=== PATIENT | male | born 1935 | race Hispanic/Latino ===

== ENCOUNTER → 2024-09-06 | Day surgery (SDC) | payer MEDICARE ==
[2024-08-10 11:04] LABS: BASOPHILS % 0.3 % (0.0-1.0); EOSINOPHILS # (AUTO) 0.1 (0.0-0.4); HEMATOCRIT 37.4 % (38.2-49.6); HEMOGLOBIN 11.6 g/dL (14.0-18.0); LYMPHOCYTES # (AUTO) 3.5 (1.0-3.2); LYMPHOCYTES % 36.2 % (18.0-39.1); MEAN CORPUSCULAR HEMOGLOBIN 29.7 pg (28-32); MEAN CORPUSCULAR VOLUME 95.9 fL (81-99); MONOCYTES # (AUTO) 0.6 (0.2-0.8); MONOCYTES % 6.1 % (4.4-11.3); NEUTROPHILS # (AUTO) 5.4 (2.1-6.9); PLATELET COUNT 190 x10e3/uL (140-360); RED CELL DISTRIBUTION WIDTH 15.5 % (11.7-14.4); WHITE BLOOD COUNT 9.57 x10e3/uL (4.8-10.8)
[2024-08-10 11:35] LABS: ANION GAP 12.7 mmol/L (8-16); CALCIUM 8.8 mg/dL (8.4-10.2); CREATININE, SERUM 2.4 mg/dL (0.72-1.25); POTASSIUM 4.7 mmol/L (3.5-5.1)
[~2024-09-06] MED LIST: ASPIRIN81 MG PO; BUPIVACAINE HCL 0.5% INJ 30 ML VIAL INJ ONE; BUPROPION HCL150 M2 PO; CITALOPRAM HBR20 MG PO; FAMOTIDINE20 MG PO; FARXIGA10 MG PO; FLOMAX0.4 MG PO; KERENDIA20 MG PO; LEVEMIR100 UNIT/1 SQ; LEVOTHYROXINE88 MCG PO; LINZESS72 MCG PO; LOSARTAN POTAS100 MG PO; LYRICA75 MG PO; MAGNESIUM OXID400 MG PO; METOPROLOL SUCC50 MG PO; NOVOLOG100 UNIT/1 SC; RAYALDEE30 MCG PO; ROSUVASTATIN CA20 MG PO; SLOW FE137 MG PO; VELTASSA8.4 GM
[2024-09-06] MEDS: LACTATED RINGER'S 1,000 ML ONE (10:18)
[2024-09-06] MEDS: CEFAZOLIN SODIUM 2 GM ONE (10:19)
[2024-09-06 13:35] VITALS: TEMP 97.5
[2024-09-06 14:30] VITALS: BP 137/65; PULSE 63; RESP 18; O2SAT 95
== END | disposition home or self-care (01) ==
LOC: OR 10:33
PROVIDERS: ATTEND Podiatrist Foot & Ankle Surgery
DX: M20.11 Hallux valgus (acquired), right foot (principal); M20.41 Other hammer toe(s) (acquired), right foot; E11.22 Type 2 diabetes mellitus with diabetic chronic kidney disease; I12.9 Hypertensive chronic kidney disease with stage 1 through stage 4 chronic kidney disease, or unspecified chronic kidney disease; N18.9 Chronic kidney disease, unspecified; F32.A Depression, unspecified; Z88.8 Allergy status to other drugs, medicaments and biological substances; Z01.810 Encounter for preprocedural cardiovascular examination; Z01.812 Encounter for preprocedural laboratory examination; Z01.818 Encounter for other preprocedural examination; Z79.82 Long term (current) use of aspirin; Z79.84 Long term (current) use of oral hypoglycemic drugs; Z79.4 Long term (current) use of insulin; Z79.899 Other long term (current) drug therapy
CPT/HCPCS: 28285 ×4; 28299; 36415 ×2; 71046; 80048; 82948; 85025; 93005; C1713; C1762; J0690; J7121